=== PATIENT | male | born 1935 | race Caucasian/White ===

== ENCOUNTER → 2021-04-24 07:16 | Outpatient (REF) | payer MEDICARE, SELFPAY | LOC: ANHLAB 07:16 | PROVIDERS: Visit Provider Nurse Practitioner | DX: C44.311 Basal cell carcinoma of skin of nose (principal); C44.329 Squamous cell carcinoma of skin of other parts of face | CPT/HCPCS: 88305; 88331 ==

== ENCOUNTER 2023-06-03 14:17 | Outpatient (NON) | payer MEDICARE, SELFPAY | END 2023-06-03 14:18 | disposition home or self-care (01) | LOC: ANHLAB 14:18 | PROVIDERS: Visit Provider Nurse Practitioner | DX: C44.329 Squamous cell carcinoma of skin of other parts of face (principal) | CPT/HCPCS: 88305; 88331 ==